=== PATIENT | female | born 1950 | race Caucasian/White ===

== ENCOUNTER 2021-08-06 08:11 | Emergency (ER) | payer MEDICARE, MEDICAID ==
[~2021-08-06] VITALS: Ht 172.7 cm; Wt 119.0 kg
--- NOTE | 2021-08-06 08:43 | ED.ADGEN ---
Past Medical History Past Medical History: High Cholesterol, Hypertension Additional Past Surgical Histo: Right leg ORIF Smoking Status: Current Every Day Smoker Alcohol Use: None Drug Use: None General Adult EDM: Chief Complaint: MECHANICAL FALL HPI: HPI: Patient is a 71 year old female coming in for knee pain. Patient states that about 1 AM, about 7 hours prior to arrival she was going to let her dog out and her legs went out and she fell down to her knees and then fell backwards and bumped the back of her head. Denies any loss conscious. Does not take any blood thinners. Patient has a history of chronic pain and arthritis in both knees. Has been to ambulate since. Drove herself to the emergency department. No open wounds or bleeding Review of Systems: Review of Systems: All other systems within normal limits except for as noted in the HPI Current Medications: Current Medications Medications (Trade) Dose Ordered Sig/Darren Start Time Stop Time Status Last Admin Dose Admin Ketorolac Tromethamine (Toradol Im) 60 mg 1X ONCE 08/06/21 08:45 08/06/21 08:46 DC 08/06/21 08:57 60 MG Allergies: Allergies: Allergies Coded Allergies Type Severity Reaction Last Updated Verified morphine Allergy Unknown 08/06/21 Yes Physical Exam: PE: Constitutional: Well developed, well nourished, no acute distress, non-toxic appearance. [] HENT: Normocephalic, atraumatic, bilateral external ears normal, nose normal. [] Eyes: PERRLA, conjunctiva normal, no discharge. [] Neck: No rigidity, supple, no stridor. [] Cardiovascular: Regular rate and rhythm, brisk cap refill [] Lungs & Thorax: Non labored symmetric respirations, no tachypnea or respiratory distress [] Abdomen: Soft, nondistended. Skin: Warm, dry, no erythema, no rash. [] Back: Unremarkable Extremities: No deformities, range of motion grossly intact, no lower extremity edema. Effusion to right knee with pain over patella, mild pain and swelling of left knee [] Neurologic: Alert and oriented X 3, no focal deficits noted. [] Psychologic: Affect normal, judgement normal, mood normal. [] Constitutional: Well developed, well nourished, no acute distress, non-toxic appearance HENT: Normocephalic, atraumatic Eyes: Conjunctiva normal, no discharge Neck: Normal range of motion, supple Lungs & Thorax: No respiratory distress, equal chest rise and fall Skin: Warm, dry, no erythema, no rash Extremities: Bilateral knee tenderness, no deformity, ROM intact, no edema Neurologic: Alert and oriented X 3, no focal deficits noted Psychologic: Affect normal, judgment normal Current Patient Data: Vital Signs: Vital Signs Date Time Temp Pulse Resp B/P (MAP) Pulse Ox O2 Delivery O2 Flow Rate FiO2 08/06/21 09:19 68 22 153/85 (107) 93 Room Air 08/06/21 08:18 98.1 98.1 EKG: EKG: [] Heart Score: C/O Chest Pain: No Radiology/Procedures: Radiology/Procedures: PROCEDURE: KNEE BILAT 4V XR KNEE 4 VIEWS WITH PATELLA History: Reason: fall, knee pain / Spl. Instructions: / History: Technique: 4 views bilateral knees. Comparison: None. Findings: Left knee: Advanced left knee degenerative changes most prominent within the medial compartment with joint space narrowing and marginal osteophyte formation. No dislocation. No acute fracture. No significant knee joint effusion. Right knee: Moderate right knee degenerative changes most prominent within the medial and patellofemoral compartment. No dislocation. No acute fracture. No significant knee joint effusion. Impression: 1. No acute osseous abnormality. 2. Bilateral knee DJD, left greater than right. Electronically signed by: Walker Shafer DO (08/06/2021 9:25 AM) [id number] Course & Med Decision Making: Course & Med Decision Making Patient pending x-rays at shift change 0900- Sign out received from Dr. Don for patient with bilateral knee pain. Xray pending. Patient seen and evaluated by myself. XRs without acute fracture/dislocation. Arthritis and signs of joint effusion noted. REJI bandages applied. Patient stable for discharge with outpatient follow-up with PCP/orthopedics. Orthopedic referral provided. Discussed findings and plan with patient and family, who acknowledge understanding and agreement. Navarro Disclaimer: Navarro Disclaimer: This electronic medical record was generated, in whole or in part, using a voice recognition dictation system. Splinting Splinting : Location: Bilateral knees Pre-Made Type: Reji bandages Pre-Proc Neuro Vasc Exam: normal Post-Proc Neuro Vasc Exam: normal, unchanged from pre-exam Departure Departure Impression: Primary Impression: Bilateral knee pain Disposition: HOME / SELF CARE / HOMELESS Condition: STABLE Referrals: LEXX JEFFERSON MD Patient Instructions: Arthritis, Nonspecific, [id number], Knee Pain, [id number], Knee Wraps (Elastic Bandage) and RICE Additional Instructions: Continue to use your previously prescribed pain medication for arthritis. May also use over the counter Tylenol as needed. Problem Qualifiers Primary Impression: Bilateral knee pain Chronicity: acute Qualified Codes: M25.561 - Pain in right knee; M25.562 - Pain in left knee SHEKHAR DON MD Aug 06, 2021 08:43 MORENO COLEMAN DO Aug 06, 2021 09:45
[2021-08-06] MEDS ORDERED: KETOROLAC 60 MG/2 ML VIAL. IM ONE (08:45)
[2021-08-06 09:19] VITALS: BP 153/85
--- NOTE | 2021-08-06 09:28 | RAD ---
XR KNEE 4 VIEWS WITH PATELLA History: Reason: fall, knee pain / Spl. Instructions: / History: Technique: 4 views bilateral knees. Comparison: None. Findings: Left knee: Advanced left knee degenerative changes most prominent within the medial compartment with joint space narrowing and marginal osteophyte formation. No dislocation. No acute fracture. No signif icant knee joint effusion. Right knee: Moderate right knee degenerative changes most prominent within the medial and patellofemo ral compartment. No dislocation. No acute fracture. No significant knee joint effusion. Impression: 1. No acute osseous abnormality. 2. Bilateral knee DJD, left greater than right. Electronically signed by: Walker Shafer DO (08/06/2021 9:25 AM) [id number]
== END 2021-08-06 09:51 | disposition home or self-care (01) ==
LOC: ER 08:11
DX: M25.561 Pain in right knee (principal); M25.562 Pain in left knee; G89.11 Acute pain due to trauma; E78.00 Pure hypercholesterolemia, unspecified; I10 Essential (primary) hypertension; F17.200 Nicotine dependence, unspecified, uncomplicated; W18.09XA Striking against other object with subsequent fall, initial encounter; Y93.89 Activity, other specified; Y92.89 Other specified places as the place of occurrence of the external cause; Y99.8 Other external cause status
CPT/HCPCS: 73564; 96372; 99284; J1885